=== PATIENT | male | born 1950 | race African-American/Black ===

== ENCOUNTER 2016-10-04 11:47 | Inpatient (IN) | payer OTHER ==
[~2016-10-04] VITALS: Ht 175.3 cm; Wt 67.1 kg
[2016-10-04] MEDS ORDERED: SODIUM CHLORIDE 0.9% 1,000 ML IV ONE (13:32)
[2016-10-04 14:06] LABS: CLARITY URINE TURBID (CLEAR); COLOR URINE DARK YELLOW (YELLOW); GLUCOSE URINE NEGATIVE (NEGATIVE); KETONES URINE NEGATIVE (NEGATIVE); LEUKOCYTE ESTERASE URINE 3+ (NEGATIVE); NITRITE URINE NEGATIVE (NEGATIVE); OCCULT BLOOD URINE 2+ (NEGATIVE); PH URINE 5.5 (4.5-8.0); PROTEIN URINE 1+ (NEGATIVE); SPECIFIC GRAVITY URINE 1.014 (1.005-1.030)
[2016-10-04 14:43] LABS: MEAN CORPUSCULAR HEMOGLOBIN 26.1 pg (28.0-32.0); MEAN CORPUSCULAR VOLUME 83.7 fL (80.0-94.0); MEAN PLATELET VOLUME 6.8 fl (7.4-10.4); PLATELET 225 x1000/uL (130-400); RED BLOOD CELL COUNT 1.96 mill/uL (4.7-6.1)
[2016-10-04 14:49] LABS: INR 1.3; PROTHROMBIN TIME 13.1 sec
[2016-10-04 14:51] LABS: CHLORIDE 99 mEq/L (98-107)
[2016-10-04] MEDS ORDERED: LEVOFLOXACIN 750MG PREMIX 150 ML IV ONE (15:00)
[2016-10-04 15:01] LABS: CARBON DIOXIDE 20 mEq/L (21-32)
[2016-10-04 15:05] LABS: HEMATOCRIT. 16.4 % (42.0-52.0); HEMOGLOBIN. 5.1 g/dL (14.0-18.0)
[2016-10-04 16:03] LABS: NUCLEATED RED BLOOD CELLS 2 /100 WBC; PLATELET ESTIMATE NORMAL
[2016-10-04] MEDS ORDERED: ONDANSETRON HCL 4MG/2ML VIAL IV PRN (16:30)
[2016-10-04] MEDS ORDERED: ACETAMINOPHEN 325MG TABLET PO PRN (16:30)
[2016-10-04] MEDS ORDERED: CLONIDINE 0.1MG TABLET PO PRN (16:30)
[2016-10-04] MEDS ORDERED: IPRATROPIUM/ALBUTEROL 0.5-3(2.5)MG/3ML NEB INH PRN (16:30)
[2016-10-04] MEDS: SODIUM CHLORIDE 0.9% 1,000 ML IV SCH (16:58)
[2016-10-04 17:44] LABS: *AMPHETAMINES SCREEN URINE NEGATIVE (NEGATIVE); *BARBITURATES SCREEN URINE NEGATIVE (NEGATIVE); *BENZODIAZEPINES SCREEN URINE NEGATIVE (NEGATIVE); *COCAINE SCREEN URINE NEGATIVE (NEGATIVE); CANNABINOID URINE SCREEN NEGATIVE (NEGATIVE); METHADONE URINE SCREEN NEGATIVE (NEGATIVE); OPIATES URINE SCREEN PRESUMTIVE POSITIVE (NEGATIVE); PHENCYCLIDINE URINE SCREEN NEGATIVE (NEGATIVE)
[2016-10-04 19:16] VITALS: BP 107/72
[2016-10-04 20:00] VITALS: BP 109/69
[2016-10-04] MEDS: HYDROCODONE/ACETAMINOPHEN 5/325MG TABLET PO PRN (20:26)
[2016-10-04 20:50] VITALS: BP 116/69
[2016-10-04 22:29] VITALS: BP 103/57
[2016-10-04 22:46] VITALS: BP 103/57
[2016-10-04 23:03] VITALS: BP 109/60
[2016-10-05] VITALS (22 sets, daily range): BP systolic 99–124; BP diastolic 58–76
[2016-10-05] MEDS ORDERED: POLY17PO3 PO (00:54)
[2016-10-05] MEDS ORDERED: OXYC-159 PO (00:54)
[2016-10-05] MEDS: MAGNESIUM/ALUMINUM HYDROXIDE/SIMETHICONE 30ML UDC PO PRN ×3 (02:32→23:49)
[2016-10-05 02:59] LABS: BASOPHILS % 0.2 % (0.0-2.0); EOSINOPHILS % 0.1 % (0.0-5.0); LYMPHOCYTES % 12.9 % (20.0-50.0); MEAN CORPUSCULAR HEMOGLOBIN 26.1 pg (28.0-32.0); MEAN CORPUSCULAR VOLUME 80.2 fL (80.0-94.0); MEAN PLATELET VOLUME 6.7 fl (7.4-10.4); MONOCYTES % 7.9 % (2.0-8.0); NEUTROPHILS % 78.9 % (40.0-76.0); PLATELET 202 x1000/uL (130-400); RED BLOOD CELL COUNT 2.55 mill/uL (4.7-6.1); RED CELL DISTRIBUTION WIDTH 20.9 % (11.6-14.6)
[2016-10-05 03:02] LABS: HEMATOCRIT. 20.5 % (42.0-52.0); HEMOGLOBIN. 6.7 g/dL (14.0-18.0)
[2016-10-05 03:17] LABS: CARBON DIOXIDE 22 mEq/L (21-32); CHLORIDE 106 mEq/L (98-107); CREATINE KINASE 142 IU/L (39-308); CREATINE KINASE MB FRACTION 0.7 ng/mL (0.5-3.6); HDL CHOLESTEROL 13 mg/dL (40-59); LDL CHOLESTEROL 21 mg/dL (5-100); TROPONIN I < 0.02 ng/mL (0.00-0.04)
[2016-10-05] MEDS: SODIUM CHLORIDE 0.9% 1,000 ML IV SCH ×2 (05:00→15:31)
[2016-10-05 08:24] LABS: HEMATOCRIT 21.8 % (42.0-52.0); HEMOGLOBIN 7.1 g/dL (14.0-18.0)
[2016-10-05] MEDS: HYDROCODONE/ACETAMINOPHEN 5/325MG TABLET PO PRN ×3 (12:24→23:42)
[2016-10-05] MEDS: LEVOFLOXACIN 500MG PREMIX 100 ML IV SCH (15:30)
[2016-10-06] VITALS (16 sets, daily range): BP systolic 108–133; BP diastolic 65–76
[2016-10-06 06:17] LABS: CARBON DIOXIDE 23 mEq/L (21-32); CHLORIDE 105 mEq/L (98-107)
[2016-10-06 07:12] LABS: FOLIC ACID (FOLATE) SERUM 7.1 ng/mL (>5.38)
[2016-10-06 07:27] LABS: HEMOGLOBIN. 9.6 g/dL (14.0-18.0); MEAN CORPUSCULAR HEMOGLOBIN 27.4 pg (28.0-32.0); MEAN CORPUSCULAR VOLUME 83.1 fL (80.0-94.0); MEAN PLATELET VOLUME 6.7 fl (7.4-10.4); PLATELET 184 x1000/uL (130-400); RED BLOOD CELL COUNT 3.48 mill/uL (4.7-6.1); RED CELL DISTRIBUTION WIDTH 20.4 % (11.6-14.6)
[2016-10-06] MEDS: HEMORRHOIDAL SUPP PR SCH (14:45)
[2016-10-06] MEDS: LEVOFLOXACIN 500MG PREMIX 100 ML IV SCH (14:45)
[2016-10-06 19:44] LABS: PLATELET ESTIMATE NORMAL
[2016-10-06] MEDS: SODIUM CHLORIDE 0.9% 1,000 ML IV SCH (20:31)
[2016-10-07] VITALS (15 sets, daily range): BP systolic 120–139; BP diastolic 61–85
[2016-10-07] MEDS: HEMORRHOIDAL SUPP PR SCH ×2 (03:22→16:03)
[2016-10-07 06:01] LABS: HEMATOCRIT. 27.5 % (42.0-52.0); HEMOGLOBIN. 9.1 g/dL (14.0-18.0); MEAN CORPUSCULAR HEMOGLOBIN 27.3 pg (28.0-32.0); MEAN CORPUSCULAR VOLUME 82.6 fL (80.0-94.0); MEAN PLATELET VOLUME 6.9 fl (7.4-10.4); PLATELET 152 x1000/uL (130-400); RED BLOOD CELL COUNT 3.33 mill/uL (4.7-6.1); RED CELL DISTRIBUTION WIDTH 20.3 % (11.6-14.6)
[2016-10-07 06:48] LABS: CARBON DIOXIDE 22 mEq/L (21-32); CHLORIDE 108 mEq/L (98-107)
[2016-10-07] MEDS: SODIUM CHLORIDE 0.9% 1,000 ML IV SCH ×2 (07:00→14:00)
[2016-10-07] MEDS: LEVOFLOXACIN 500MG TABLET PO SCH (10:41)
[2016-10-07 14:37] LABS: PLATELET ESTIMATE NORMAL
[2016-10-07] MEDS: HYDROCODONE/ACETAMINOPHEN 5/325MG TABLET PO PRN (18:18)
[2016-10-08] VITALS (8 sets, daily range): BP systolic 123–144; BP diastolic 67–74
[2016-10-08] MEDS: SODIUM CHLORIDE 0.9% 1,000 ML IV SCH ×2 (02:59→08:00)
[2016-10-08] MEDS: HYDROCODONE/ACETAMINOPHEN 5/325MG TABLET PO PRN ×4 (04:21→23:17)
[2016-10-08] MEDS: HEMORRHOIDAL SUPP PR SCH ×2 (04:29→16:33)
[2016-10-08 06:52] LABS: HEMATOCRIT 28.5 % (42.0-52.0); HEMOGLOBIN 9.4 g/dL (14.0-18.0)
[2016-10-08] MEDS: LEVOFLOXACIN 500MG TABLET PO SCH (11:12)
[2016-10-08] MEDS: MAGNESIUM/ALUMINUM HYDROXIDE/SIMETHICONE 30ML UDC PO PRN (12:23)
[2016-10-09] VITALS (7 sets, daily range): BP systolic 118–143; BP diastolic 63–78
[2016-10-09] MEDS: HEMORRHOIDAL SUPP PR SCH (04:00)
[2016-10-09 06:21] LABS: HEMATOCRIT 27.7 % (42.0-52.0); HEMOGLOBIN 8.9 g/dL (14.0-18.0)
[2016-10-09] MEDS: SODIUM CHLORIDE 0.9% 1,000 ML IV SCH (08:43)
[2016-10-09] MEDS: LEVOFLOXACIN 500MG TABLET PO SCH (11:14)
[2016-10-09] MEDS ORDERED: HYDROCODONE/ACETAMINOPHEN 5/325MG TABLET PO PRN (17:00)
[2016-10-10] MEDS ORDERED: DOCUSATE SODIUM 250MG CAPSULE PO SCH (09:00)
== END 2016-10-09 21:10 | DRG 254 ==
LOC: ER 11:47 → 5WST 15:27 → EDBEDREQ 15:38 → EDBEDREQSVC 15:38 → ENRESERV 15:43 → 5EST 20:37
PROVIDERS: ADMIT Internal Medicine; ATTEND Internal Medicine
PROC: 30233N1 Transfusion of Nonautologous Red Blood Cells into Peripheral Vein, Percutaneous Approach (ICD-10-PCS; principal; 2016-10-04)
DX: K64.9 Unspecified hemorrhoids (principal); N17.9 Acute kidney failure, unspecified; I27.2 Other secondary pulmonary hypertension; C61 Malignant neoplasm of prostate; N39.0 Urinary tract infection, site not specified; N13.30 Unspecified hydronephrosis; E86.0 Dehydration; I12.9 Hypertensive chronic kidney disease with stage 1 through stage 4 chronic kidney disease, or unspecified chronic kidney disease; D63.8 Anemia in other chronic diseases classified elsewhere; E78.5 Hyperlipidemia, unspecified; N18.9 Chronic kidney disease, unspecified; I25.10 Atherosclerotic heart disease of native coronary artery without angina pectoris; K59.00 Constipation, unspecified; R63.4 Abnormal weight loss; Z60.2 Problems related to living alone; R00.0 Tachycardia, unspecified; Z86.73 Personal history of transient ischemic attack (TIA), and cerebral infarction without residual deficits; Z68.21 Body mass index [BMI] 21.0-21.9, adult; Z88.0 Allergy status to penicillin
CPT/HCPCS: 36415; 71010; 74000; 74176; 76770; 78582; 80048; 80053; 80061; 80305; 81001; 82270; 82378; 82550; 82553; 82728; 82746; 83540; 83550; 83690; 83735; 84153; 84443; 84484; 85014; 85018; 85025; 85044; 85379; 85610; 86301; 86850; 86900; 86920; 87040; 87077; 87086; 87186; 93005; 93306; 93970; 96361; 96365; 97116; 97163; 97166; 97530; 97535; 99285; A9558; J1956; J2405; J7030; J7040; P9016; A4315